=== PATIENT | female | born 2000 | race Caucasian/White ===

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

== ENCOUNTER 2021-01-30 12:41 | Emergency (ER) | payer MEDICAID ==
[~2021-01-30] VITALS: Ht 165.1 cm; Wt 79.0 kg
[2021-01-30 13:24] VITALS: BP 117/57
[2021-01-30 13:48] LABS: MICROSCOPIC NOT IND
--- NOTE | 2021-01-30 14:34 | NUR ---
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
[2021-01-30] MEDS ORDERED: METHOCARBAMOL 750 MG TABLET PO ONE (15:00)
[2021-01-30] MEDS ORDERED: KETOROLAC 30 MG/1 ML IM ONE (15:00)
[2021-01-30] MEDS ORDERED: METHOCARBAMOL 750 MG TABLET ONE (15:09)
[2021-01-30] MEDS ORDERED: KETOROLAC 30 MG/1 ML ONE (15:09)
[2021-01-30 15:30] LABS: HCG UR SG 1.018 (1.003-1.030)
== END 2021-01-30 15:17 | disposition home or self-care (01) ==
LOC: ED 12:44
DX: S39.012A Strain of muscle, fascia and tendon of lower back, initial encounter (principal); F17.210 Nicotine dependence, cigarettes, uncomplicated; W18.30XA Fall on same level, unspecified, initial encounter; Y92.89 Other specified places as the place of occurrence of the external cause; Y93.89 Activity, other specified; Y99.8 Other external cause status
CPT/HCPCS: 72110; 81003; 81025; 96372; 99284; J1885